=== PATIENT | female | born 1960 | race Caucasian/White ===

== ENCOUNTER 2017-11-06 11:03 | Emergency (ER) | payer OTHER ==
[~2017-11-06] VITALS: Ht 162.6 cm; Wt 65.8 kg
[2017-11-06 11:13] VITALS: BP_SYST 141
--- NOTE | 2017-11-06 11:28 | NUR ---
Pt complains of sore throat, cough, body aches and fever since yesterday. Pt states has yellow phlegm since this morning. Pt denies n/v or diarrhea. No other injuries/complaints per pt or noted.
--- NOTE | 2017-11-06 11:28 | NUR ---
Patient to ER bed 3 to gown for evaluation. Side rails up. Report given to Tri PHILLIP RN.
--- NOTE | 2017-11-06 11:32 | NUR ---
ER at bedside examining patient.
[2017-11-06 12:00] VITALS: BP_SYST 138
--- NOTE | 2017-11-06 12:00 | NUR ---
Patient given written and verbal discharge instructions and verbalizes understanding. ER MD discussed with patient the results and treatment provided. Patient in stable condition. ID arm band removed. Rx of tylenol with codeine, zithromax and chloraseptic given. Patient educated on pain management and to follow up with PMD. Pain Scale 2. Opportunity for questions provided and answered.
== END 2017-11-06 12:00 | disposition home or self-care (01) ==
LOC: SED 11:03
DX: J02.9 Acute pharyngitis, unspecified (principal); J20.9 Acute bronchitis, unspecified; Z88.0 Allergy status to penicillin
CPT/HCPCS: 36415; 86710; 99284